=== PATIENT | male | born 1955 | race Caucasian/White ===

== ENCOUNTER 2018-10-03 11:28 | Observation (INO) | payer MEDICARE, OTHER ==
[~2018-10-03] VITALS: Ht 182.9 cm; Wt 120.0 kg
--- NOTE | 2018-10-03 11:55 | NUR ---
DR CRUZ NOTIFIED OF PT STROKE SYMPTOMS, LEVEL 2 STROKE CALLED.
[2018-10-03 12:03] LABS: BASOPHILS # (AUTO) 0.1 X10'3 (0-0.2); EOSINOPHILS # (AUTO) 0.1 X10'3 (0-0.9); EOSINOPHILS % (AUTO) 1.7 % (0-6); HEMATOCRIT 38.9 % (42.0-52.0); HEMOGLOBIN 13.4 g/dl (14.0-17.9); LYMPHOCYTES # (AUTO) 2.2 X10'3 (1.1-4.8); LYMPHOCYTES % (AUTO) 28.9 % (21-51); MEAN CORPUSCULAR HEMOGLOBIN 30.1 PG (27.0-31.0); MEAN CORPUSCULAR HGB CONC 34.5 g/dL (33.0-36.5); MEAN CORPUSCULAR VOLUME 87.5 FL (78-98); MEAN PLATELET VOLUME 8.7 FL (7.4-10.4); MONOCYTES # (AUTO) 0.8 X10'3 (0-0.9); MONOCYTES % (AUTO) 11.1 % (2-12); NEUTROPHILS # (AUTO) 4.4 X10'3 (1.8-7.7); NEUTROPHILS % (AUTO) 57.3 % (42-75); PLATELET COUNT 148 X10'3 (140-440); RED BLOOD COUNT 4.45 X10'6 (4.70-6.10); RED CELL DISTRIBUTION WIDTH 13.5 % (11.5-14.5); WHITE BLOOD COUNT 7.6 X10'3 (4.5-11.0)
[2018-10-03 12:20] LABS: ALANINE AMINOTRANSFERASE 37 U/L (12-78); ALBUMIN 3.9 G/DL (3.4-5.0); ALBUMIN/GLOBULIN RATIO 1.5 (1.1-1.5); ALKALINE PHOSPHATASE 83 IU/L (46-116); ANION GAP 9 (8-16); ASPARTATE AMINO TRANSFERASE 21 U/L (10-37); BILIRUBIN,TOTAL 0.4 MG/DL (0.1-1.0); BLOOD UREA NITROGEN 12 MG/DL (7-18); BUN/CREATININE RATIO 12.5 (5.4-32.0); CALCIUM 8.4 MG/DL (8.5-10.1); CHLORIDE 103 MMOL/L (99-107); CREATININE 0.96 MG/DL (0.60-1.10); GLUCOSE 200 MG/DL (70-104); POTASSIUM 3.8 MMOL/L (3.5-5.1); SODIUM 137 MMOL/L (135-145); TOTAL CARBON DIOXIDE 25.1 MMOL/L (24-32); TOTAL PROTEIN 6.5 G/DL (6.4-8.2); eGFR 79 ML/MIN
[2018-10-03 12:24] LABS: PARTIAL THROMBOPLASTIN TIME 27 SECONDS (22-32)
--- NOTE | 2018-10-03 12:26 | NUR ---
PT BACK FROM CT
[2018-10-03] MEDS ORDERED: aspirin 81mg tab.chew PO ONE (12:35)
--- NOTE | 2018-10-03 12:36 | NUR ---
DR PRYOR AT BEDSIDE, BRANT LINDSAY CALLED OF BY DR PRYOR. PT REPORTS CHEST PAIN.
[2018-10-03] MEDS ORDERED: glucagon, human recombinant 1mg kit SUBCUT PRN (12:45)
[2018-10-03] MEDS ORDERED: potassium Cl 20 mEq SR tablet PO PRN ×2 (12:45)
[2018-10-03] MEDS ORDERED: acetaminophen 325mg tablet PO PRN ×2 (12:45)
[2018-10-03] MEDS ORDERED: dextrose 50%-water 50ml dispensing syringe IV PRN ×2 (12:45)
[2018-10-03] MEDS ORDERED: ondansetron/PF 4mg/2ml inj IV PRN (12:45)
[2018-10-03] MEDS ORDERED: dextrose ORAL solution 15 GM/59 ML bottle PO PRN ×2 (12:45)
[2018-10-03] MEDS ORDERED: magnesium 2GM in 50ml NS 50 ML IV PRN (12:45)
[2018-10-03] MEDS ORDERED: mag hydrox/Alum hydrox/simeth 30ml oral suspension PO PRN (12:45)
[2018-10-03] MEDS ORDERED: magnesium hydroxide 30ml (MOM) UD suspension PO PRN (12:45)
[2018-10-03] MEDS ORDERED: magnesium 4gm in 100ml NS 100 ML IV PRN (12:45)
[2018-10-03] MEDS ORDERED: magnesium Cl slow-release 64mg tablet PO PRN (12:45)
[2018-10-03] MEDS ORDERED: MESSAGE TO PHARMACY PO ONE (12:45)
[2018-10-03] MEDS ORDERED: potassium CL 10mEq/100ml bag 100 ML IV PRN ×2 (12:45)
[2018-10-03] MEDS ORDERED: insulin Lispro (HumaLOG) vial - multi-dose SQ SCH (12:45)
[2018-10-03] MEDS ORDERED: LIDO700A32 TOP (13:04)
[2018-10-03] MEDS ORDERED: DICL100G15 TOP (13:04)
[2018-10-03] MEDS ORDERED: GABA-532 PO (13:04)
[2018-10-03] MEDS ORDERED: CYCL10TA10 PO (13:04)
[2018-10-03] MEDS ORDERED: ATOR-2 PO (13:04)
[2018-10-03] MEDS ORDERED: CHLO25TA2 PO (13:04)
[2018-10-03] MEDS ORDERED: LANTUS SQ (13:04)
[2018-10-03] MEDS ORDERED: ALBU8HFA PO (13:04)
[2018-10-03] MEDS ORDERED: HYDR-4383 PO (13:04)
[2018-10-03] MEDS ORDERED: ASPI-611 PO (13:04)
[2018-10-03] MEDS ORDERED: GLIP10TA11 PO (13:04)
[2018-10-03] MEDS ORDERED: TERB30CR22 TP (13:11)
[2018-10-03] MEDS ORDERED: VENL37.589 PO (13:11)
[2018-10-03] MEDS ORDERED: TRAZ150T78 PO (13:11)
[2018-10-03] MEDS ORDERED: LISI30TA4 PO (13:11)
[2018-10-03] MEDS ORDERED: METO25TA6 PO (13:11)
[2018-10-03] MEDS ORDERED: METF500T7 PO (13:11)
[2018-10-03] MEDS ORDERED: LITH150C8 PO (13:11)
[2018-10-03] MEDS ORDERED: aminophylline 250mg/10ml inj. IV PRN (13:55)
[2018-10-03] MEDS ORDERED: metoprolol tartrate 1mg/ml inj IV PRN (13:55)
[2018-10-03] MEDS ORDERED: nitroGLYCERIN 0.4mg SUBLingual tab SL PRN (13:55)
[2018-10-03] MEDS ORDERED: regadenoson 0.4mg/5ml syringe IV PRN (13:55)
[2018-10-03 14:17] LABS: HEMOGLOBIN A1C 8.2 % (4.5-6.2)
--- NOTE | 2018-10-03 15:00 | NUR ---
Patient in room [facility]. I have received report from christianne ALMANZAR and had the opportunity to ask questions and assume patient care.
--- NOTE | 2018-10-03 15:31 | NUR ---
Tele chamber called to say Patient was in Sinus arrythmia low 40- 70. Dr Emmett hamilton. will monitor
[2018-10-03 15:39] VITALS: BP 124/81
--- NOTE | 2018-10-03 18:33 | NUR ---
patient stable with VS no more calls from Tele during shift. Patient dizzy when standing. Telemetry called and stated they do not have a bed. Dr pantoja stated that ok to transfer to PCU if bed available. Report given to Katelin.
[2018-10-03] MEDS ORDERED: DICLOFENAC SODIUM 4 GM TOP PRN (19:30)
[2018-10-03] MEDS ORDERED: cyclobenzaprine 10mg tablet PO PRN (19:30)
[2018-10-03] MEDS ORDERED: albuterol 2.5 MG/3 ML nebule NEB PRN (19:35)
[2018-10-03] MEDS ORDERED: DICLOFENAC SODIUM TP PRN (19:50)
[2018-10-03 20:00] VITALS: BP 134/74
[2018-10-03] MEDS: metoprolol tartrate 12.5mg (1/2 tablet) PO SCH (20:00)
[2018-10-03] MEDS: lithium carbonate 150mg capsule PO SCH (20:53)
[2018-10-03] MEDS: gabapentin 300mg capsule PO SCH (20:53)
[2018-10-03] MEDS: venlafaxine XR 37.5mg cap (Q24H) PO SCH (20:54)
[2018-10-03] MEDS: terbinafine cream 30gm TP SCH (20:59)
[2018-10-03] MEDS ORDERED: atorvastatin 20mg tablet PO SCH (21:00)
[2018-10-03] MEDS ORDERED: traZODone 150mg tablet PO SCH (21:00)
[2018-10-03] MEDS ORDERED: insulin glargine (Lantus) pen - multi-dose SQ SCH (21:00)
[2018-10-03] MEDS ORDERED: non-formulary drug (Atorvastatin Calcium 1 TAB) PO SCH (21:00)
[2018-10-04] VITALS (11 sets, daily range): BP systolic 130–155; BP diastolic 71–91
[2018-10-04 05:11] LABS: BASOPHILS % (AUTO) 0.6 % (0-1); EOSINOPHILS # (AUTO) 0.2 X10'3 (0-0.9); EOSINOPHILS % (AUTO) 2.1 % (0-6); HEMATOCRIT 39.3 % (42.0-52.0); HEMOGLOBIN 13.3 g/dl (14.0-17.9); LYMPHOCYTES # (AUTO) 2.4 X10'3 (1.1-4.8); LYMPHOCYTES % (AUTO) 31.5 % (21-51); MEAN CORPUSCULAR HEMOGLOBIN 29.9 PG (27.0-31.0); MEAN CORPUSCULAR HGB CONC 33.9 g/dL (33.0-36.5); MEAN CORPUSCULAR VOLUME 88.1 FL (78-98); MEAN PLATELET VOLUME 9.1 FL (7.4-10.4); MONOCYTES # (AUTO) 0.9 X10'3 (0-0.9); MONOCYTES % (AUTO) 11.9 % (2-12); NEUTROPHILS # (AUTO) 4.1 X10'3 (1.8-7.7); NEUTROPHILS % (AUTO) 53.9 % (42-75); PLATELET COUNT 131 X10'3 (140-440); RED BLOOD COUNT 4.46 X10'6 (4.70-6.10); RED CELL DISTRIBUTION WIDTH 13.8 % (11.5-14.5); WHITE BLOOD COUNT 7.6 X10'3 (4.5-11.0)
[2018-10-04 05:26] LABS: ALBUMIN 3.7 G/DL (3.4-5.0); ANION GAP 7 (8-16); BLOOD UREA NITROGEN 13 MG/DL (7-18); BUN/CREATININE RATIO 12.9 (5.4-32.0); CALCIUM 8.3 MG/DL (8.5-10.1); CHLORIDE 106 MMOL/L (99-107); CHOLESTEROL 171 MG/DL (0-200); CREATININE 1.01 MG/DL (0.60-1.10); GLUCOSE 167 MG/DL (70-104); HDL CHOLESTEROL 43 MG/DL (35-60); LDL CHOLESTEROL 110 MG/DL (50-100); MAGNESIUM 1.8 MG/DL (1.5-2.4); POTASSIUM 4.3 MMOL/L (3.5-5.1); SODIUM 139 MMOL/L (135-145); TOTAL CARBON DIOXIDE 25.9 MMOL/L (24-32); TRIGLYCERIDES 145 MG/DL (20-135); eGFR 74 ML/MIN
[2018-10-04] MEDS: metoprolol tartrate 12.5mg (1/2 tablet) PO SCH (07:18)
[2018-10-04] MEDS: lithium carbonate 150mg capsule PO SCH (07:25)
[2018-10-04] MEDS: gabapentin 300mg capsule PO SCH ×2 (07:25→13:52)
[2018-10-04] MEDS: venlafaxine XR 37.5mg cap (Q24H) PO SCH (07:25)
[2018-10-04] MEDS: terbinafine cream 30gm TP SCH (07:27)
[2018-10-04] MEDS ORDERED: K and/or MAG REPLACEMENT MC SCH (08:00)
[2018-10-04] MEDS ORDERED: enoxaparin 40mg/0.4ml syringe SQ SCH (08:00)
[2018-10-04] MEDS ORDERED: LIDOcaine 5% patch TP SCH (08:00)
[2018-10-04] MEDS ORDERED: lisinopril 10 MG tablet PO SCH (08:00)
[2018-10-04] MEDS ORDERED: non-formulary drug (Aspirin (Aspir 81) 1 TAB) PO SCH (08:00)
[2018-10-04] MEDS ORDERED: chlorthalidone 25mg tablet PO SCH (08:00)
[2018-10-04] MEDS ORDERED: aspirin 81mg tablet.DR PO SCH (08:00)
[2018-10-04] MEDS ORDERED: non-formulary drug (Lisinopril 1 TAB) PO SCH (08:00)
[2018-10-04] MEDS ORDERED: aminophylline inj. 10 ML IV ONE (09:06)
[2018-10-04] MEDS ORDERED: NITR0.4T51 SL (14:10)
--- NOTE | 2018-10-04 14:46 | NUR ---
DM consult, A1c is 8.3, patient given written DM education handout with verbal review and referral to outpatient DM education class on Sunday. Patient presented to ED with chest pressure, difficulty breathing, nausea, pending workup. Noted that triglycerides are 145 and LDL 110, may benefit from written heart healthy education handout with verbal review, was given to patient. Addendum: 10/04/18 at [address] Amended: Links added.
--- NOTE | 2018-10-04 16:47 | NUR ---
PT DISCHARGED IN STABLE CONDITION. LEFT FACILITY IN PRIVATE VEHICLE WITH FRIEND. IV DC CANULA INTACT. FOLLOW UP INSTRUCTIONS GIVEN, ALL QUESTIONS ANSWERED. ALL BELONGINGS IN HAND. Addendum: 10/04/18 at 1648 by Suellen Fung RN Amended: Links added.
== END 2018-10-04 16:46 | disposition home or self-care (01) ==
LOC: ER 11:29 → SUR 3N 15:02 → INTOOBSV 15:02 → SUR 3N 22:35
PROVIDERS: ADMIT Hospitalist; ATTEND Hospitalist
DX: I25.119 Atherosclerotic heart disease of native coronary artery with unspecified angina pectoris (principal); E11.9 Type 2 diabetes mellitus without complications; I10 Essential (primary) hypertension; Z87.891 Personal history of nicotine dependence; Z86.73 Personal history of transient ischemic attack (TIA), and cerebral infarction without residual deficits; Z79.82 Long term (current) use of aspirin
CPT/HCPCS: 36415; 70450; 71045; 78452; 80048; 80053; 80061; 82948; 83036; 83735; 84484; 85025; 85610; 85730; 87081; 93005; 93017; 93306; 94760; 96372; 99284; A9500; G0378; J0280; J1815; J2785; 99285; J1650